=== PATIENT | male | born 1960 | race Caucasian/White ===

== ENCOUNTER 2023-01-11 11:17 | Emergency (ER) | payer SELFPAY ==
[~2023-01-11] VITALS: Ht 175.3 cm; Wt 113.2 kg
[2023-01-11 11:24] VITALS: BP 142/88
[2023-01-11 11:31] VITALS: BP 128/90
[2023-01-11 11:39] LABS: BASO% 0.7 % (0-3); IMMATURE GRANULOCYTES 0.2 % (0.0-5.0); LYMPH% 25.9 % (15-41); MEAN CELL VOLUME 84.3 fL CALC (80.0-100.0); MEAN CORPUSCULAR HGB 27.5 pG CALC (26.0-32.0); MEAN CORPUSCULAR HGB CONC 32.6 g/dL CAL (32.0-36.0); MONO% 8.2 % (2-13); NEUT# 3.83 thou/uL (1.82-7.42); RED BLOOD COUNT 5.1 mill/uL (4.70-6.10); RED CELL DISTRI WIDTH 14.5 % (11.5-15.5)
[2023-01-11 11:51] LABS: ALBUMIN 4.4 g/dL (3.2-5.0); ALKALINE PHOSPHATASE 84 u/l (38-126); ANION GAP 13 (6-22 (CALC)); BILIRUBIN, TOTAL 0.4 mg/dL (0.2-1.3); BUN 21 mg/dL (9-20); BUN/CREATININE RATIO 18 (12-20 (CALC)); CARBON DIOXIDE 26 mmol/l (22-30); CHLORIDE 106 mmol/l (95-108); CPK 70 u/l (55-170); CREATININE 1.1 mg/dL (0.7-1.3); GFR FOR AFR.AMER. > 60 ML/MIN (>=60 (CALC)); GFR OTHER RACES > 60 ML/MIN (>=60 (CALC)); MAGNESIUM 1.9 mg/dL (1.6-2.3); POTASSIUM 4.5 mmol/l (3.5-5.1); SGOT/AST 26 u/l (17-59); SODIUM 140 mmol/l (137-146); TOTAL PROTEIN 7.6 g/dL (6.3-8.2)
[2023-01-11 12:01] VITALS: BP 128/84
[2023-01-11 13:01] VITALS: BP 115/72
[2023-01-11 13:31] VITALS: BP 130/75
[2023-01-11 14:01] VITALS: BP 125/68
== END 2023-01-11 14:19 | disposition home or self-care (01) | DRG 312 ==
LOC: ED 11:17
PROVIDERS: Nurse Practitioner
DX: R55 Syncope and collapse (principal); E86.0 Dehydration; E27.1 Primary adrenocortical insufficiency; L40.9 Psoriasis, unspecified; Z53.20 Procedure and treatment not carried out because of patient's decision for unspecified reasons